=== PATIENT | male | born 1990 | race African-American/Black ===

== ENCOUNTER 2017-03-10 08:34 | Emergency (ER) | payer BC ==
[~2017-03-10] VITALS: Ht 165.1 cm; Wt 58.9 kg
[2017-03-10 08:55] LABS: MCH 33.1 PG (29.0-34.0); MCHC 33.8 G/DL (30.0-36.0); MCV 97.9 FL (86-99); MEAN PLAT.VOLUME 9.2 uM^3 (9.0-12.4); PLATELET COUNT 341 K/uL (156-360); RBC DIS.WIDTH-CV 11.3 % (11.8-14.6); RBC DIS.WIDTH-SD 41.1 % (39-53); WHITE BLOOD COUNT 7.4 K/uL (4.1-10.2)
[2017-03-10 09:06] LABS: CHLORIDE 100 mEq/L (99-109); SODIUM 136 mEq/L (136-147)
[2017-03-10 09:08] LABS: GLUCOSE 85 mg/dL (70-99)
[2017-03-10 09:10] LABS: ANION GAP 11 MEQ/L (2-14); TOTAL BILIRUBIN 1.3 mg/dL (0.0-1.0)
[2017-03-10 09:12] LABS: ALKALINE PHOSPHATASE 54 IU/L (3-129); GFR ESTIMATE (CALCULATED) > 59 mL/min/
[2017-03-10 09:13] LABS: UREA NITROGEN (BUN) 15 mg/dL (9-23)
[2017-03-10 09:15] LABS: LIPASE 10 U/L (1.0-51.0)
[2017-03-10 09:55] LABS: ADD MIUA? YES; BILIRUBIN NEGATIVE; BLOOD NEGATIVE; COLOR YELLOW ((YELLOW)); GLUCOSE (STRIP) NEGATIVE; KETONES NEGATIVE; LEUKOCYTES NEGATIVE; NITRITE NEGATIVE; PROTEIN (STRIP) NEGATIVE; SPECIFIC GRAVITY 1.023 (1.000-1.030)
[2017-03-10 10:04] LABS: AMORPHOUS PHOSPHATE CRYSTALS 3+; BACTERIA 1+ /HPF; CRYSTALS PRESENT; EPITHELIAL CELLS NONE SEEN /HPF; MUCUS NONE SEEN /LPF; RED BLOOD CELLS 0-5 /HPF (0-5); UCUL ADDED? NO
[2017-03-10 10:05] LABS: CASTS NONE SEEN /LPF; WHITE BLOOD CELLS NONE SEEN /HPF (0-5)
[2017-03-10] MEDS ORDERED: PROTONIX40 MG PO (11:38)
[2017-03-10 11:56] VITALS: BP 121/74
== END 2017-03-10 11:58 | disposition home or self-care (01) ==
LOC: EME 08:34
DX: R10.13 Epigastric pain (principal); F17.200 Nicotine dependence, unspecified, uncomplicated
CPT/HCPCS: 74177; 80053; 81003; 83690; 85027; 99281; 99284; J2270; J7040; S0028